=== PATIENT | female | born 2000 | race Caucasian/White ===

== ENCOUNTER 2019-09-13 09:10 | Emergency (ER) | payer OTHER, MEDICAID, SELFPAY ==
[2019-09-13 09:24] VITALS: BP 123/61; PULSE 95; RESP 16; TEMP 36.8; O2SAT 99
--- NOTE | 2019-09-13 09:40 | ED.UPPEXIN ---
HPI - Extremity Injury (Upper) General Chief Complaint: Upper Respiratory Infection Stated Complaint: sore throat cough and congestion Time Seen by Provider: 09/13/19 09:40 Source: patient and RN notes reviewed History of Present Illness HPI narrative: Patient is a 18-year-old female who presents the urgent care with her mother with complaints of sore throat, cough, congestion for 2 days. Patient states that her sister was diagnosed with strep pneumonia recently and they do live in the same home. Denies of any known fever, nausea, vomiting. Has been using NyQuil without any relief. No other acute complaints. No acute distress noted. Patient ran plan of care. Related Data Home Medications Medication Instructions Recorded Confirmed No Home Medications 09/13/19 09/13/19 Allergies Allergy/AdvReac Type Severity Reaction Status Date / Time vancomycin Allergy Unknown hives Verified 09/13/19 09:41 Review of Systems Review of Systems: Narrative: CONSTITUTIONAL: Denies fever, chills, or sweats. EYES: Denies visual changes, redness, or discharge. ENT: Reports of sore throat, congestion, runny nose CARDIOVASCULAR: Denies chest pain, palpitations, or edema. RESPIRATORY: Reports nonproductive cough without dyspnea GASTROINTESTINAL: Denies abdominal pain, nausea, vomiting, or diarrhea. GENITOURINARY: Denies dysuria or hematuria. SKIN: Denies rash or itching. MUSCULOSKELETAL: Denies back pain, joint pain, or myalgia. NEUROLOGIC: Denies headache, numbness, or weakness. PMFSH Comments At the time of my signature, I reviewed and agree with the nursing past medical, surgical, social, and family history. There is no relevant family history pertinent to the patient complaint. Exam Narrative: Exam Narrative: GENERAL: This is a well-nourished, well-developed patient, in no apparent distress. HEAD: normocephalic, atraumatic. EYES: PERRL. Sclera clear/white. Vision is grossly intact. EARS: External ears normal, auditory canals clear and without drainage, TMs normal without perforation. Hearing grossly intact. NOSE: External nose normal with no obvious nasal discharge, nares without redness, no rhinorrhea. THROAT: Mucous membranes moist, posterior pharynx clear. Mild postnasal drainage NECK: Neck supple CARDIOVASCULAR: Regular rate and rhythm without murmurs, gallops, or rubs. RESPIRATORY: Clear to auscultation. Breath sounds equal bilaterally. No wheezes, rales, or rhonchi. SKIN: warm, intact with no suspicious lesions or rash, good texture and turgor. NEURO: awake, alert, and oriented to person, place and time. There were no obvious focal neurologic abnormalities. EXTREMITIES: No clubbing, cyanosis, or edema. Course Vital Signs Vital signs: Vital Signs Temperature 98.3 F 09/13/19 09:24 Pulse Rate 95 09/13/19 09:24 Respiratory Rate 16 09/13/19 09:24 Blood Pressure 123/61 09/13/19 09:24 Pulse Oximetry 99 09/13/19 09:24 Temperature 98.3 F 09/13/19 09:24 Pulse Rate 95 09/13/19 09:24 Respiratory Rate 16 09/13/19 09:24 Blood Pressure 123/61 09/13/19 09:24 Pulse Oximetry 99 09/13/19 09:24 Reviewed MDM - Extremity Injury (Upper) MDM Narrative Medical decision making narrative: Reviewed lab results with the patient. She is aware that strep swab was negative. Educated her on culture and will call within 72 hours if culture is positive and antibiotics are necessary. Advised the patient to use Claritin and Flonase for symptoms. May use Tylenol/ibuprofen as needed. Increase fluids and rest. Follow-up with PCP within 2 to 5 days or for worsening symptoms or failure to improve. Differential Diagnosis Differential diagnosis: Likely other (Pneumonia, Allergic Rhinitis, Upper respiratory cough syndrome, Pharyngitis, Sinusitis, Bronchitis, otitis media, viral URI, Asthma/reactive airway disease, COPD, emphysema) Lab Data Attestation: I reviewed the patient's lab results. Labs: Strep Screen
== END 2019-09-13 09:53 | disposition home or self-care (01) ==
PROVIDERS: Emergency Provider Nurse Practitioner Family
DX: J06.9 Acute upper respiratory infection, unspecified (principal)
CPT/HCPCS: 87081; 87880; 99213; G0463

== ENCOUNTER 2019-09-27 17:50 | Emergency (ER) | payer OTHER, MEDICAID, SELFPAY ==
[2019-09-27 18:20] VITALS: BP 133/62; PULSE 100; RESP 20; TEMP 37.2; O2SAT 99
--- NOTE | 2019-09-27 19:33 | ED.URI ---
HPI - URI/Sore Throat General Chief Complaint: Upper Respiratory Infection Stated Complaint: fever headache and nausea Time Seen by Provider: 09/27/19 19:47 Source: patient, family and RN notes reviewed Mode of arrival: ambulatory Limitations: no limitations History of Present Illness HPI Narrative: 18 year old female accompanied by mother with complaints of sore throat for the past few weeks,states some sinus drainage which is yellow in color also with fevers up to 100.9F intermittently. Patient was seen on the 13 of September with negative strep test, patient voices she has had exposure to her sister who had strep. Patient states that she has felt feverish, had chills and is increasingly tired with body aches. Patient states that she did have influenza immunization this season.Patient states that she has taken Ibuprofen for her sore throat and fever. MD elicited complaint: sore throat Onset (ago): week(s) (2-3) Consistency: intermittent Severity: mild Pain scale (0-10): 3 Description of mucous: clear and yellow Able to tolerate fluids by mouth: Yes Exacerbating factors: other (swallowing) Relieving factors: nothing Context: sick contacts Associated symptoms: fever, myalgias, rhinorrhea, nasal congestion and sore throat Treatments prior to arrival: ibuprofen Related Data Home Medications Medication Instructions Recorded Confirmed etonogestrel [Nexplanon] 1 implant SUBDERMAL ONCE 09/27/19 09/27/19 Allergies Allergy/AdvReac Type Severity Reaction Status Date / Time vancomycin Allergy Unknown hives Verified 09/27/19 18:44 Review of Systems Review of Systems: Narrative: CONSTITUTIONALstates fever, chills, or sweats. EYES: Denies visual changes, redness, or discharge. ENT: states rhinorrhea, congestion, sore throat, no otalgia. CARDIOVASCULAR: Denies chest pain, palpitations, or edema. RESPIRATORY: Denies cough or dyspnea. GASTROINTESTINAL: Denies abdominal pain, nausea, vomiting, or diarrhea. GENITOURINARY: Denies dysuria or hematuria. SKIN: Denies rash or itching. MUSCULOSKELETAL: Denies back pain, joint pain, body aches and fatigue NEUROLOGIC: Denies headache, numbness, or weakness. PSYCHIATRIC: Denies anxiety or depression. All systems reviewed & are unremarkable except as noted in HPI and below PMFSH Past Medical History Medical History (Updated 10/02/19 @ 09:09 by Mere Cho NP) Epilepsy Kidney problem Surgical History Surgical History (Updated 10/02/19 @ 09:12 by Mere Cho NP) H/O ureter repair History of dental surgery S/P appy Social History Social History (Updated 10/02/19 @ 09:12 by Mere Cho NP) Smoking status: Never smoker Living arrangements: with family Gender identity (if verbalized by the patient): Female Comments At time of signature, agree with nursing past medical, , social history. There is no relevant family history pertinent to the presenting complaint Exam Narrative: Exam Narrative: GENERAL: Well-appearing, well-nourished, and in no acute distress. HEAD: Normocephalic, atraumatic. EYES: PERRLA and EOMI. ENT: Nares red clear to light yellow nasal drainage rhinorrhea no epistaxis. Mucous membranes moist.TM's normal with good light reflex, throat red no lesions or exudate, tonsils not enlarged, post nasal drainage noted NECK: Supple.no lymphadenopathy CHEST: Clear to auscultation. No respiratory distress.SAO2 99% on room air HEART: Regular rate and rhythm. No murmur heard. Normal peripheral pulses. ABDOMEN: Soft, nontender, nondistended, normal active bowel sounds. EXTREMITIES: Normal range of motion. No edema. SKIN: Warm, dry, no rash. NEURO: No focal deficits. Alert and oriented x3. Course Vital Signs Vital signs: Vital Signs Temperature 37.2 C 09/27/19 18:20 Pulse Rate 100 09/27/19 18:20 Respiratory Rate 20 09/27/19 18:20 Blood Pressure 133/62 09/27/19 18:20 Pulse Oximetry 99 09/27/19 18:20 Temperature 37.2 C
== END 2019-09-27 20:05 | disposition home or self-care (01) ==
PROVIDERS: Emergency Provider Registered Nurse
DX: J02.9 Acute pharyngitis, unspecified (principal)
CPT/HCPCS: 87081; 87804; 87880; 99213; G0463

== ENCOUNTER 2021-06-08 08:31 | Emergency (ER) | payer OTHER, SELFPAY ==
[2021-06-08 08:42] VITALS: BP 116/62; PULSE 95; RESP 18; TEMP 36.7; O2SAT 98
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
== END 2021-06-08 09:16 | disposition home or self-care (01) ==
PROVIDERS: Emergency Provider Nurse Practitioner Family; PCP Nurse Practitioner Family
DX: K04.7 Periapical abscess without sinus (principal); S01.81XA Laceration without foreign body of other part of head, initial encounter; V18.4XXA Pedal cycle driver injured in noncollision transport accident in traffic accident, initial encounter; S09.90XA Unspecified injury of head, initial encounter
CPT/HCPCS: 99213; G0463

== ENCOUNTER 2021-09-28 10:41 | Emergency (ER) | payer BC, OTHER, SELFPAY ==
[2021-09-28 10:48] VITALS: BP 145/68; PULSE 104; RESP 20; TEMP 38; O2SAT 98
--- NOTE | 2021-09-28 11:22 | ED.DENTAL ---
HPI - Dental/Oral General Chief complaint: Dental/Oral Stated complaint: abcess in mouth Time Seen by Provider: 09/28/21 11:22 Source: patient History of Present Illness HPI Narrative: NO FEVER. NO JAW SWELLING. NO NECK SWELLING. NO LIMITATION WITH SPEAKING OR SWALLOWING. HAS A HISTORY OF DENTAL CARIES. HAS NOT SEEN A DENTIST RECENTLY. Patient presents with chronic teeth problems. Patient has pain to left upper gum area. No trouble swallowing no drooling. Patient does not see dentist on a regular basis. MD Complaint: tooth pain Related Data Home Medications Medication Instructions Recorded Confirmed norethindrone-e.estradiol-iron 1 tablet PO DAILY 09/28/21 09/28/21 [Aurovela Fe 1-20 (28)] Allergies Allergy/AdvReac Type Severity Reaction Status Date / Time vancomycin Allergy Unknown hives Verified 09/28/21 11:05 Review of Systems Review of Systems: CONSTITUTIONAL: Denies fever, chills, or sweats. EYES: Denies visual changes, redness, or discharge. ENT: Denies rhinorrhea, congestion, sore throat, or otalgia. CARDIOVASCULAR: Denies chest pain, palpitations, or edema. RESPIRATORY: Denies cough or dyspnea. GASTROINTESTINAL: Denies abdominal pain, nausea, vomiting, or diarrhea. GENITOURINARY: Denies dysuria or hematuria. SKIN: Denies rash or itching. MUSCULOSKELETAL: Denies back pain, joint pain, or myalgia. NEUROLOGIC: Denies headache, numbness, or weakness. PSYCHIATRIC: Denies anxiety or depression. Allergic/Immunologic: Comments: At time of signature, agree with nursing past medical, surgical, social and family history. There is no relevant family history pertinent to the presenting complaint PMFSH Past Medical History Medical History Epilepsy Kidney problem Surgical History Surgical History H/O ureter repair History of dental surgery S/P appy Social History Social History Smoking status: Never smoker Gender identity (if verbalized by the patient): Female Exam Narrative: GENERAL: Well-appearing, well-nourished, and in no acute distress. HEAD: Normocephalic, atraumatic. EYES: PERRLA and EOMI. ENT: Nares clear, no rhinorrhea or epistaxis. Mucous membranes moist. NO FEVER. NO JAW SWELLING. NO NECK SWELLING. NO LIMITATION WITH SPEAKING OR SWALLOWING. HAS A HISTORY OF DENTAL CARIES. HAS NOT SEEN A DENTIST RECENTLY. NO SUSHILA APICAL SWELLING, TOOTH TENDER TO PALPATION. NO FACIAL SWELLING. NO TRISMUS. ABLE TO OPEN MOUTH FULLY. NO NECK SWELLING OR KEYA'S ANGINA. NO ABSCESS TO BE DRAINED. no drooling, trismus, facial asymmetry or significant neck swelling NECK: Supple. CHEST: Clear to auscultation. No respiratory distress. HEART: Regular rate and rhythm. No murmur heard. Normal peripheral pulses. ABDOMEN: Soft, nontender, nondistended, normal active bowel sounds. EXTREMITIES: Normal range of motion. No edema. SKIN: Warm, dry, no rash. NEURO: No focal deficits. Alert and oriented x3. [place] Coma Scale Eye Opening: Spontaneous 4 [place] Coma Scale Motor: Obeys Commands 6 Ruy Coma Scale Verbal: Oriented 5 [place] Coma Scale Total 15 HENMT: Teeth image: 1. tooth swelling to gums Course Course Level of Care: Express Care Visit Vital Signs Vital signs: Vital Signs Temperature 38.0 C H 09/28/21 10:48 Pulse Rate 104 H 09/28/21 10:48 Respiratory Rate 09/28/21 10:48 Blood Pressure 145/68 H 09/28/21 10:48 Pulse Oximetry 98 09/28/21 10:48 Temperature 38.0 C H 09/28/21 10:48 Pulse Rate 104 H 09/28/21 10:48 Respiratory Rate 09/28/21 10:48 Blood Pressure 145/68 H 09/28/21 10:48 Pulse Oximetry 98 09/28/21 10:48 Addressed elevated BP today. Today's blood pressure higher than recommended range. Discussed importance of follow -up with PCP and possible automobile travel club counselor effects/cardiovascular events related to H
== END 2021-09-28 11:30 | disposition home or self-care (01) ==
PROVIDERS: Emergency Provider Nurse Practitioner Family; PCP Nurse Practitioner Family
DX: K02.9 Dental caries, unspecified (principal); K05.10 Chronic gingivitis, plaque induced; K04.7 Periapical abscess without sinus
CPT/HCPCS: 99213; G0463

== ENCOUNTER 2021-10-30 10:29 | Emergency (ER) | payer BC, OTHER, SELFPAY ==
[2021-10-30 10:34] VITALS: BP 122/71; PULSE 100; RESP 18; TEMP 36.9; O2SAT 99
--- NOTE | 2021-10-30 11:58 | ED.GENADULT ---
HPI - General Adult General Chief complaint: Upper Respiratory Infection Stated complaint: Sinus Pain Time Seen by Provider: 10/30/21 11:58 Source: patient and RN notes reviewed Mode of arrival: ambulatory Limitations: no limitations History of Present Illness HPI narrative: 21-year-old female presented for complaint of sinus pressure, congestion, sore throat, onset 3 days. She denies associated nausea, vomiting, fever, chills, shortness of breath or cough. She is not vaccinated for flu or Covid. She denies sick contacts. She is not taking anything for symptoms. She had a negative Covid test at home. Related Data Home Medications Medication Instructions Recorded Confirmed norethindrone-e.estradiol-iron 1 tablet PO DAILY 09/28/21 09/28/21 [Aurovela Fe 1-20 (28)] Allergies Allergy/AdvReac Type Severity Reaction Status Date / Time vancomycin Allergy Unknown hives Verified 10/30/21 11:34 Review of Systems Review of Systems: CONSTITUTIONAL: Denies malaise, chills, sweats, fever EYES: Denies visual changes, redness, or discharge ENT: Reports rhinorrhea, congestion, sinus pain, sore throat CARDIOVASCULAR: Denies chest pain, palpitations, edema RESPIRATORY: Reports cough, post nasal drainage. Denies dyspnea GASTROINTESTINAL: Denies abdominal pain, nausea, vomiting, diarrhea SKIN: Denies rash or itching MUSCULOSKELETAL: Denies myalgia NEUROLOGIC: Endorses headache PMFSH Past Medical History Medical History Epilepsy Kidney problem Surgical History Surgical History H/O ureter repair History of dental surgery S/P appy Social History Social History Smoking status: Never smoker Gender identity (if verbalized by the patient): Female Exam Narrative: GENERAL: Ill-appearing, nontoxic no acute distress. HEAD: Normocephalic EYES: PERRLA, conjunctivae clear ENT: Mucous membranes moist. TM pearly adam with dull light reflex bilaterally; no tragal tenderness. Oropharynx erythematous without lesions or exudate, no drooling, no hoarseness, no trismus, uvula midline. NECK: Supple. No lymphadenopathy CHEST: Clear to auscultation, breath sounds equal. No wheezing, rhonchi, rales, or stridor. No respiratory distress, speaks in full sentences. HEART: Regular rate and rhythm. No murmur heard. SKIN: Warm, dry, no rash. NEURO: Alert and oriented x3. PSYCH: Normal mood and affect Course Course Emergency Course: Patient is aware of diagnosis, understands and agrees to treatment plan. Anticipatory guidance given. Patient agrees to follow-up as directed and is aware of reasons to seek care at the emergency department. Portions of this record may have been created with voice recognition software Level of Care: Express Care Visit Vital Signs Vital signs: Vital Signs Temperature 98.5 F 10/30/21 10:34 Pulse Rate 100 10/30/21 10:34 Respiratory Rate 18 10/30/21 10:34 Blood Pressure 122/71 10/30/21 10:34 Pulse Oximetry 99 10/30/21 10:34 Temperature 98.5 F 10/30/21 10:34 Pulse Rate 100 10/30/21 10:34 Respiratory Rate 18 10/30/21 10:34 Blood Pressure 122/71 10/30/21 10:34 Pulse Oximetry 99 10/30/21 10:34 reviewed Medical Decision Making MDM Narrative Medical decision making narrative: Symptoms consistent with URI. No apparent emergent concerns. She is appropriate for discharge and outpatient follow-up. Differential Diagnosis Differential Diagnosis: Influenza, covid, sinusitis, OM, strep pharyngitis, URI Vital Signs Vital Signs: Vital Signs Temperature 98.5 F 10/30/21 10:34 Pulse Rate 100 10/30/21 10:34 Respiratory Rate 18 10/30/21 10:34 Blood Pressure 122/71 10/30/21 10:34 Pulse Oximetry 99 10/30/21 10:34 Temperature 98.5 F 10/30/21 10:34 Pulse Rate 100 10/30/21 10:34 Respiratory Rat
== END 2021-10-30 12:35 | disposition home or self-care (01) ==
PROVIDERS: Emergency Provider Nurse Practitioner Family; PCP Nurse Practitioner Family
DX: J06.9 Acute upper respiratory infection, unspecified (principal); Z20.822 Contact with and (suspected) exposure to COVID-19; G40.909 Epilepsy, unspecified, not intractable, without status epilepticus
CPT/HCPCS: 87081; 87426; 87804; 87880; 99213; C9803; G0463

== ENCOUNTER 2022-07-12 09:24 | Emergency (ER) | payer BC, MEDICAID, SELFPAY ==
[2022-07-12 09:30] VITALS: BP 114/53; PULSE 101; RESP 20; TEMP 36.8; O2SAT 98
--- NOTE | 2022-07-12 09:58 | ED.URI ---
HPI - URI/Sore Throat General Chief Complaint: Upper Respiratory Infection Stated Complaint: cough scratchy throat fatigue Time Seen by Provider: 07/12/22 09:58 Source: patient, RN notes reviewed and old records reviewed Mode of arrival: ambulatory Limitations: no limitations History of Present Illness HPI Narrative: 21-year-old female presents to the [facility] with complaints of cough, scratchy throat since Tuesday, 3 days. reports exposure to strep and flu. Patient takes seizure medication and is concerned about side effects with a lot of medications. So she does not take anything to help with her symptoms except for cough drops. Onset (ago): day(s) (3) Related Data Home Medications Medication Instructions Recorded Confirmed divalproex 250 mg tablet,delayed 250 mg PO BID 07/12/22 07/12/22 release Allergies Allergy/AdvReac Type Severity Reaction Status Date / Time vancomycin Allergy Unknown hives Verified 07/12/22 09:40 Review of Systems Review of Systems: All systems reviewed & are unremarkable except as noted in HPI and below Constitutional: Constitutional: Reports as per HPI, Reports body ache(s), Denies chills, Denies fever(s) and Denies headache(s) Eyes: Eyes: Reports no additional eye complaints ENT: Reports as per HPI, Denies headache(s), Reports nasal congestion ( and drainage) and Reports sore throat Cardiovascular: Cardiovascular: Reports no additional cardiovascular complaints, Denies chest pain and Denies dyspnea Respiratory: Respiratory: Reports as per HPI, Denies chest congestion, Reports cough and Denies dyspnea Gastrointestinal: Gastrointestinal: Reports no additional gastrointestinal complaints and Denies abdominal pain Musculoskeletal: Musculoskeletal: Reports no additional musculoskeletal complaints Integumentary/Breasts: Skin/Breast: Reports system reviewed and no additional complaints, except as docu Neurologic: Reports system reviewed and no additional complaints, except as documented and Denies headache(s) Psychiatric: Psychiatric: Reports no additional psychiatric complaints Allergic/Immunologic: Allergic/Immunologic: Reports no additional allergic/immunologic complaints PMFSH Past Medical History Medical History Epilepsy Kidney problem Surgical History Surgical History H/O ureter repair History of dental surgery S/P appy Social History Social History (Reviewed 07/12/22 @ 10:09 by CRISTHIAN Boucher Smoking status: Never smoker Gender identity (if verbalized by the patient): Female Comments At the time of my signature, I reviewed and agree with the nursing past medical, surgical, social, and family history. There is no relevant family history pertinent to the patient complaint. Exam Const: General: cooperative, healthy appearing, comfortable, no acute distress, well developed, alert and well nourished Nutritional Appearance: well nourished Orientation/consciousness: patient oriented x3 Limitations: no limitations HENMT: Head: normal to inspection Ears: external ears normal Face/Nose/Sinus: Normal external nose present, Normal nares present, Normal nasal mucous membranes and turbinates present and normal facial exam Face and sinus: normal facial exam Mouth: Yes Normal oral and palatal mucosa present, Yes lip normal and Yes moist mucous membranes abnormal Throat: posterior oropharynx normal and uvula midline Eyes: General: appearance normal, both eyes and all related structures Alignment and Position: alignment normal Conjunctivae: conjunctivae normal Pupils: Equal, round and reactive pupils present Neck: Neck: normal visual inspection, full ROM, no lymphadenopathy and no meningeal signs Chest: Chest palpation & inspection: normal inspection of the chest Resp: Effort & Inspection: normal respiratory effort and no use of accessory muscles Au
== END 2022-07-12 10:25 | disposition home or self-care (01) ==
PROVIDERS: Emergency Provider Nurse Practitioner; PCP Nurse Practitioner Family
DX: J06.9 Acute upper respiratory infection, unspecified (principal)
CPT/HCPCS: 99213; G0463

== ENCOUNTER 2022-11-04 08:46 | Emergency (ER) | payer BC, MEDICAID, SELFPAY ==
[2022-11-04 08:58] VITALS: BP 126/65; PULSE 78; RESP 15; TEMP 36.7; O2SAT 100
--- NOTE | 2022-11-04 10:03 | ED.SKABFB ---
HPI - Skin/Abscess/Foreign Bdy General Chief complaint: Skin/Abscess/Foreign Body Stated complaint: Skin Problem Time Seen by Provider: 11/04/22 10:03 Source: patient, RN notes reviewed and old records reviewed Mode of arrival: ambulatory Limitations: no limitations History of Present Illness HPI narrative: 22-year-old female presents to [facility] with complaints of painful swollen red rash on her right arm which she woke up with this morning. Patient denies any known injury to area. Skin area to her right forearm is red warm and tender to palpation, no pustules or weeping noted. Patient has not taken any OTC medications for her discomfort. Small lesion noted to distal area of rash that appear like bite or sting. Patient denies any difficulty with swallowing or with breathing. MD complaint: rash Onset (ago): day(s) (Today) Severity scale (1-10): 5 Treatments prior to arrival: none Related Data Home Medications Medication Instructions Recorded Confirmed divalproex 250 mg tablet,delayed 250 mg PO BID 07/12/22 07/12/22 release Allergies Allergy/AdvReac Type Severity Reaction Status Date / Time vancomycin Allergy Unknown hives Verified 11/04/22 09:13 aspirin AdvReac Unknown Verified 11/04/22 09:13 Review of Systems Review of Systems: CONSTITUTIONAL: Denies fever, chills, or sweats. CARDIOVASCULAR: Denies chest pain, palpitations, or edema. RESPIRATORY: Denies cough or dyspnea. SKIN: Reports that she awoke with red painful warm rash to right distal forearm small bite or sting noted no fluctuant tissue MUSCULOSKELETAL: Denies joint pain or myalgia. NEUROLOGIC: Denies headache, numbness, or weakness. All systems reviewed & are unremarkable except as noted in HPI and below PMFSH Past Medical History Medical History Epilepsy Kidney problem Surgical History Surgical History H/O ureter repair History of dental surgery S/P appy Social History Social History Smoking status: Never smoker Living arrangements: with family Gender identity (if verbalized by the patient): Female Comments At time of signature, agree with nursing past medical, surgical, social and family history. There is no relevant family history pertinent to the presenting complaint Exam Narrative: GENERAL: Well-appearing, well-nourished, and in no acute distress. HEAD: Normocephalic, atraumatic. EYES: PERRLA, conjunctivae clear, and EOMI. ENT: Mucous membranes moist. Oropharynx without edema, erythema or lesions. NECK: Supple. No lymphadenopathy CHEST: Clear to auscultation. No respiratory distress.SAO2 100% on room air HEART: Regular rate and rhythm. SKIN: Warm, dry.? Red warm tissue to right distal forearm 10cm X 10cm of which she awoke with this morning does not know of bite or sting, small bite or sting malgorzata noted distal area of rash, no fluctuant tissue, is tender to palpation. NEURO:? Alert and oriented x3. PSYCH: Normal mood and affect Course Course Emergency Course: Patient is aware of diagnosis, understands and agrees to treatment plan.? Anticipatory guidance given.? Patient agrees to follow-up as directed and is aware of reasons to seek care at the emergency department. Portions of this record may have been created with voice recognition software Level of Care: Express Care Visit Vital Signs Vital signs: Vital Signs Temperature 36.7 C 11/04/22 08:58 Pulse Rate 78 11/04/22 08:58 Respiratory Rate 15 11/04/22 08:58 Blood Pressure 126/65 11/04/22 08:58 Pulse Oximetry 100 11/04/22 08:58 Oxygen Delivery Room Air 11/04/22 08:58 Temperature 36.7 C 11/04/22 08:58 Pulse Rate 78 11/04/22 08:58 Respiratory Rate 15 11/04/22 08:58 Blood Pressure 126/65 11/04/22 08:58 Pulse Oximetry 100 11/04/22 08:58 Oxygen Delive
== END 2022-11-04 10:30 | disposition home or self-care (01) ==
PROVIDERS: Emergency Provider Registered Nurse; PCP Nurse Practitioner Family
DX: L03.113 Cellulitis of right upper limb (principal); S50.861A Insect bite (nonvenomous) of right forearm, initial encounter
CPT/HCPCS: 99213; G0463

== ENCOUNTER 2024-01-21 14:32 | Emergency (ER) | payer OTHER, SELFPAY ==
[2024-01-21 14:44] VITALS: BP 118/61; PULSE 84; RESP 20; TEMP 37.6; O2SAT 100
--- NOTE | 2024-01-21 15:30 | ED.GENADULT ---
HPI - General Adult General Chief complaint: Dental/Oral Stated complaint: Toothache Time Seen by Provider: 01/21/24 15:02 Source: patient, RN notes reviewed and old records reviewed Mode of arrival: ambulatory Limitations: no limitations History of Present Illness HPI narrative: 23-year-old female to Express Care for complaint generalized mild pain 1 week. Patient endorses history of gum disease and history poor dentition with no doubt regular dental care. Patient endorses that pain is the worst and right lower gums and bilateral upper molars. Patient is febrile in triage however denies fever at home. Patient denies nausea, vomiting, headache, dizziness. respirations even and nonlabored. Patient in no acute distress. Related Data Home Medications Medication Instructions Recorded Confirmed divalproex 250 mg tablet,delayed 250 mg PO BID 07/12/22 01/21/24 release Allergies Allergy/AdvReac Type Severity Reaction Status Date / Time vancomycin Allergy Unknown hives Verified 01/21/24 14:44 aspirin AdvReac Unknown Verified 01/21/24 14:44 Review of Systems Review of Systems: All systems reviewed & are unremarkable except as noted in HPI and below Constitutional: Constitutional: Reports no additional constitutional complaints Eyes: Eyes: Reports no additional eye complaints ENT: Reports as per HPI, Reports dental pain and Reports facial pain Cardiovascular: Cardiovascular: Reports no additional cardiovascular complaints, Denies chest pain and Denies dyspnea Respiratory: Respiratory: Reports no additional respiratory complaints, Denies cough and Denies dyspnea Musculoskeletal: Musculoskeletal: Reports no additional musculoskeletal complaints Neurologic: Reports system reviewed and no additional complaints, except as documented Psychiatric: Psychiatric: Reports no additional psychiatric complaints [facility] Past Medical History Medical History Epilepsy Kidney problem Surgical History Surgical History H/O ureter repair History of dental surgery S/P appy Social History Social History Smoking status: Never smoker Living arrangements: with family Gender identity (if verbalized by the patient): Female Comments At the time of my signature, I reviewed and agree with the nursing past medical, surgical, social, and family history. There is no relevant family history pertinent to the patient complaint. Exam Const: General: cooperative, healthy appearing, comfortable, no acute distress, alert and well nourished Nutritional Appearance: well nourished Orientation/consciousness: patient oriented x3 Limitations: no limitations HENMT: Head: normal to inspection Ears: external ears normal Face/Nose/Sinus: Normal external nose present, Normal nares present, normal facial exam, No erythema and No edema Face and sinus: normal facial exam, no erythema and no edema Mouth: Yes lip normal, Yes tongue normal, Yes oropharynx normal, Yes moist mucous membranes and Yes malodorous breath Teeth and gingiva: abnormal tooth and associated gingiva, gingiva abnormal hypertrophic, edematous, with purulent discharge and tender, multiple restorations and poor dentition Eyes: General: appearance normal, both eyes and all related structures Neck: Neck: normal visual inspection, full ROM and no meningeal signs Lymphatic: no lymphadenopathy noted and no lymphedema noted Chest: Chest palpation & inspection: normal inspection of the chest Resp: Effort & Inspection: normal respiratory effort and able to speak in complete sentences Auscultation: clear to auscultation bilaterally Cardio: Jugular venous distension: no JVD Rate: regular rate Rhythm: regular rhythm Back/Spine/Pelvis: Cervical Spine: cervical ROM normal Skin: General skin exam: normal c
== END 2024-01-21 15:45 | disposition home or self-care (01) ==
PROVIDERS: Emergency Provider Nurse Practitioner Family; PCP Nurse Practitioner Family
DX: K02.9 Dental caries, unspecified (principal); S02.5XXA Fracture of tooth (traumatic), initial encounter for closed fracture; X58.XXXA Exposure to other specified factors, initial encounter; K04.7 Periapical abscess without sinus; G40.909 Epilepsy, unspecified, not intractable, without status epilepticus
CPT/HCPCS: 99213; G0463